=== PATIENT | male | born 1960 | race Caucasian/White ===

== ENCOUNTER 2019-02-15 05:55 | Day surgery (SDC) | payer BC ==
[2019-02-15] MEDS ORDERED: fentaNYL 100 MCG/2 ML SDV IV ONE ×4 (05:56→07:18)
[2019-02-15] MEDS ORDERED: Midazolam 1 MG/ML 2 ML SDV IV ONE ×7 (05:56→07:17)
[2019-02-15] MEDS ORDERED: Midazolam 1 MG/ML 2 ML SDV ONE (06:11)
[2019-02-15] MEDS ORDERED: fentaNYL 100 MCG/2 ML SDV ONE (06:12)
[2019-02-15] MEDS ORDERED: Dextrose 5%-0.45% NaCl 1,000 ML IV SCH (07:00)
[2019-02-15] MEDS ORDERED: Sodium Chloride 0.9% 10 ML Syringe FLUSH PRN (07:00)
--- NOTE | 2019-02-15 12:51 | OR ---
DATE: 02/15/2019 PROCEDURE: Total colonoscopy, NBI, and cold snare polypectomies. INSTRUMENT USED: CF-H190DL Olympus video colonoscope. PREMEDICATIONS: Fentanyl 125 mcg intravenous, Versed 4 mg intravenous, nasal O2 cannula. The procedure was done under pulse oximetry, BP recording, and patient monitor. INDICATION: The patient with previous colonic polyps. Surveillance colonoscopic examination is done for detection of any polypoid lesions and removal, endoscopic hemostasis therapy if needed. DESCRIPTION OF PROCEDURE: Initial rectal exam was unremarkable. Rigid anoscopy was normal. The colonoscope was passed with ease. Numerous scattered diverticula were noted in the distal left colon along with deformity. The scope was passed with ease up to the ileocecal area. Photographs were taken of the normal appearing cecum, identified by landmarks of appendiceal orifice and double-bulged ileocecal folds. No bleeding was noted from any of the visualized areas at the commencement of the examination. The bowel preparation was found to be adequate, Sheldon scale 3. No stricture, no vascular ectasia, no large isolated ulcerations seen. No evidence of diffuse inflammatory bowel disease in the form of friability, contact bleeding, or ulcerations. Probing the proximal sides of folds and flexures using adequate distention and clearing up the stool material, withdrawal of the scope was made. In the area of hepatic flexure, 3 mm sized benign-appearing polyp was noted. NBI views were obtained. Photographs were taken. Cold snare polypectomy was done and the polyp was retrieved and sent for histopathology. No bleeding was noted from any of the visualized areas at the completion of examination. IMPRESSION: 1. Diverticulosis. 2. Diminutive colonic polyp. The patient tolerated the procedure well. [facility] /[id number]
== END 2019-02-15 09:35 | disposition home or self-care (01) ==
LOC: DL.ENDO 05:55
PROVIDERS: ATTEND Internal Medicine Gastroenterology
DX: Z12.11 Encounter for screening for malignant neoplasm of colon (principal); D12.3 Benign neoplasm of transverse colon; K57.30 Diverticulosis of large intestine without perforation or abscess without bleeding; Z86.010 Personal history of colon polyps
CPT/HCPCS: 45385; J2250; J3010; J7042

== ENCOUNTER 2024-01-15 05:50 | Day surgery (SDC) | payer BC ==
[2024-01-15] MEDS ORDERED: Midazolam 1 MG/ML 2 ML SDV IV ONE (05:51)
[2024-01-15] MEDS ORDERED: fentaNYL 100 MCG/2 ML SDV IV ONE (05:51)
[2024-01-15] MEDS ORDERED: Midazolam 1 MG/ML 2 ML SDV ONE (05:57)
[2024-01-15] MEDS ORDERED: fentaNYL 100 MCG/2 ML SDV ONE (05:57)
[2024-01-15] MEDS: Dextrose 5%-0.45% NaCl 1,000 ML IV SCH (06:15)
[2024-01-15] MEDS: fentaNYL 100 MCG/2 ML SDV IV ONE ×2 (07:10→07:11)
[2024-01-15] MEDS: Midazolam 1 MG/ML 2 ML SDV IV ONE ×6 (07:11→07:17)
== END 2024-01-15 09:20 | disposition home or self-care (01) ==
LOC: DL.ENDO 05:50
PROVIDERS: ATTEND Internal Medicine Gastroenterology
DX: Z12.11 Encounter for screening for malignant neoplasm of colon (principal); D12.3 Benign neoplasm of transverse colon
CPT/HCPCS: J2250; J3010; J7042

== ENCOUNTER 2025-08-20 10:55 | Emergency (ER) | payer BC ==
[2025-08-20] MEDS ORDERED: Sodium Chloride 0.9% 10 ML Syringe FLUSH PRN (11:17)
[2025-08-20 11:30] LABS: APPEARANCE,URINE CLEAR (CLEAR); GLUCOSE,URINE NEGATIVE (NEGATIVE); OCCULT BLOOD,URINE NEGATIVE (NEGATIVE)
[2025-08-20 11:30] LABS: PLATELET COUNT,PLT 287 10^3/uL (150-450); RED BLOOD CELL COUNT 4.53 10^6/uL (4.6-6.2); WHITE BLOOD CELL COUNT,WBC 7.6 10^3/uL (5.0-10.0)
[2025-08-20 11:33] LABS: BASOPHILS PERCENT AUTO 0.4 % (0.0-1.0); EOSINOPHILS PERCENT AUTO 1.1 % (1.0-3.0); LYMPHOCYTES PERCENT AUTO 12.4 % (20.5-50.1); MONOCYTES PERCENT AUTO 8.3 % (2-8); NEUTROPHILS PERCENT AUTO 77.8 % (42.2-75.2)
[2025-08-20 11:49] LABS: A/G RATIO 0.78; ALANINE AMINOTRANSFERASE,ALT 27.0 U/L (16-63); ASPARTATE AMNIOTRANSFERASE,AST 17.0 U/L (15-37); BILIRUBIN TOTAL 0.8 mg/dL (0.2-1.0); BLOOD UREA NITROGEN,BUN 16.0 mg/dL (7-18); CARBON DIOXIDE,CO2 29.0 mmol/L (21-32); CHLORIDE,CL 105.0 mmol/L (98-107); CREATINE KINASE,CK 89.0 U/L (39-308); CREATININE 0.91 mg/dL (0.70-1.30); EST CRCL DRUG DOSING (CG) 86.9 mL/min; ESTIMATED GFR 95.0 mL/min (>=60); GLUCOSE RANDOM 92.0 mg/dL (70-99); POTASSIUM,K 4.2 mmol/L (3.5-5.1); PROTEIN TOTAL,TP 7.3 g/dL (6.4-8.2); SODIUM,NA 142.0 mmol/L (136-145)
[2025-08-20 11:50] LABS: SEG NEUTROPHILS PERCENT MAN 78 % (42-75)
[2025-08-20 11:51] LABS: BAND PERCENT MAN 2 %; EOSINOPHILS PERCENT MAN 1 % (1-3); LYMPHOCYTES PERCENT MAN 13 % (20-50); MONOCYTES PERCENT MAN 6 % (2-8)
[2025-08-20] MEDS: Ketorolac 30 MG/ML SDV IVPUSH ONE (12:10)
== END 2025-08-20 12:17 | disposition home or self-care (01) ==
LOC: DL.ED 10:55
DX: M62.830 Muscle spasm of back (principal); K21.9 Gastro-esophageal reflux disease without esophagitis; Z79.899 Other long term (current) drug therapy
CPT/HCPCS: 36415; 80053; 81003; 82550; 83735; 85025; 96374; 96375; 99283; 99283-25; J1885; J3360